=== PATIENT | female | born 1970 | race African-American/Black ===

== ENCOUNTER 2019-03-20 10:50 | Emergency (ER) | payer MEDICAID ==
[2019-03-20] MEDS ORDERED: NORMAL SALINE 1000 ML 1,000 ML IV ONE (11:31)
[2019-03-20] MEDS ORDERED: ACETAMINOPHEN 325 MG TABLET PO ONE (11:31)
[2019-03-20] MEDS ORDERED: MECLIZINE HCL 25 MG TABLET PO ONE ×2 (11:31→13:45)
--- NOTE | 2019-03-20 11:37 | ER Document Report ---
ED Medical Screen (RME) - General Chief Complaint: Headache >24 hrs old Stated Complaint: HEADACHE/DIZZY Time Seen by Provider: 03/20/19 11:24 Notes: Patient is a 48-year-old female who presents emergency department with a chief complaint of a headache. She has had headache for the past 2 weeks. She denies any numbness, weakness, or tingling. Patient states that the headache is on the right side of her head and at the crown of her head. Patient states that she also did have some night spots. She also has some dizziness. Patient has a history of migraines, but has not had a migraine cocktail before. Patient was taking NyQuil and DayQuil at home with little relief. She has not taken ibuprofen or Tylenol. Exam: 5 out of 5 strength in upper and lower extremities. I have greeted and performed a rapid initial assessment of this patient. A comprehensive ED assessment and evaluation of the patient, analysis of test results and completion of medical decision making process will be conducted by an additional ED providers. TRAVEL OUTSIDE OF THE [place] IN LAST 30 DAYS: No Past Medical History - Social History Chew tobacco use (# tins/day): No Frequency of alcohol use: Rare Drug Abuse: None Physical Exam - Vital signs Vitals: Temp Pulse Resp BP Pulse Ox 98.1 F 84 16 145/92 H 97 03/20/19 11:00 03/20/19 11:00 03/20/19 11:00 03/20/19 11:00 03/20/19 11:00 Course - Vital Signs Vital signs: Temp Pulse Resp BP Pulse Ox 98.1 F 84 16 145/92 H 97 03/20/19 11:00 03/20/19 11:00 03/20/19 11:00 03/20/19 11:00 03/20/19 11:00
[2019-03-20 12:20] LABS: APPEARANCE,URINE CLEAR; BILIRUBIN,URINE NEGATIVE (NEGATIVE); COLOR,URINE YELLOW; GLUCOSE, URINE NEGATIVE (NEGATIVE); KETONES,URINE NEGATIVE (NEGATIVE); PROTEIN,URINE NEGATIVE (NEGATIVE); URINE SPECIFIC GRAVITY 1.013; UROBILINOGEN,URINE NEGATIVE mg/dL (<2.0)
--- NOTE | 2019-03-20 13:14 | EKG REPORT ---
SEVERITY:- NORMAL ECG - SINUS RHYTHM : Confirmed by: Graham Londono MD 20-Mar-2019 13:13:15
[2019-03-20] MEDS ORDERED: ACETAMINOPHEN 325 MG TABLET ONE (13:43)
[2019-03-20 14:25] LABS: ABSOLUTE BASOPHILS # (AUTO) 0.1 10^3/uL (0.0-0.2); ABSOLUTE EOSINOPHILS # (AUTO) 0.1 10^3/uL (0.0-0.6); ABSOLUTE MONOCYTES (AUTO) 0.4 10^3/uL (0.1-1.4); ABSOLUTE NEUT (AUTO) 2.9 10^3/uL (1.7-8.2); BASOPHILS % (AUTO) 1.3 % (0-2); EOSINOPHILS % (AUTO) 2.1 % (0-6); HEMATOCRIT 47.1 % (36.0-47.0); HEMOGLOBIN 15.8 g/dL (12.0-15.5); LYMPHOCYTES % (AUTO) 36.9 % (13-45); MEAN CORPUSCULAR HEMOGLOBIN 32.8 pg (27.0-33.4); MEAN CORPUSCULAR HGB CONC 33.5 g/dL (32.0-36.0); MEAN CORPUSCULAR VOLUME 98 fl (80-97); MONOCYTES % (AUTO) 6.9 % (3-13); PLATELET COUNT 260 10^3/uL (150-450); RED BLOOD COUNT 4.81 10^6/uL (3.72-5.28); RED CELL DISTRIBUTION WIDTH 12.4 % (11.5-14.0); SEGMENTED NEUTROPHILS % (AUTO) 52.8 % (42-78); TOTAL CELLS COUNTED % (AUTO) 100 %; WHITE BLOOD COUNT 5.4 10^3/uL (4.0-10.5)
[2019-03-20 14:43] LABS: ALBUMIN 4.4 g/dL (3.5-5.0); ALKALINE PHOSPHATASE 82 U/L (38-126); ANION GAP 6 (5-19); ASPARTATE AMINO TRANSFERASE 28 U/L (14-36); BILIRUBIN,TOTAL 0.3 mg/dL (0.2-1.3); BLOOD UREA NITROGEN 13 mg/dL (7-20); CARBON DIOXIDE 31 mmol/L (22-30); CHLORIDE 101 mmol/L (98-107); CREATINE KINASE 96 U/L (30-135); GLUCOSE 85 mg/dL (75-110); POTASSIUM 3.9 mmol/L (3.6-5.0); TOTAL PROTEIN 7.7 g/dL (6.3-8.2)
[2019-03-20 14:55] LABS: CREATINE KINASE MB 0.76 ng/mL (<4.55)
[2019-03-20 14:56] LABS: TROPONIN I < 0.012 ng/mL
[2019-03-20] MEDS ORDERED: BUTALB/ACETAMINOPHEN/CAFFEINE 1 TAB EACH PO ONE (16:09)
--- NOTE | 2019-03-20 16:36 | RADIOLOGY REPORT (SQ) ---
EXAM DESCRIPTION: CT HEAD WITHOUT COMPLETED DATE/TIME: 03/20/2019 4:20 pm REASON FOR STUDY: pain COMPARISON: None. TECHNIQUE: Axial images acquired through the brain without intravenous contrast. Images reviewed wit h bone, brain and subdural windows. Images stored on PACS. All CT scanners at this facility use dose modulation, iterative reconstruction, and/or weight based d osing when appropriate to reduce radiation dose to as low as reasonably achievable (ALARA). [facility]: Dose Right [facility]: CareDose [facility]: Dose Right [facility]: Teradose 4D [facility]: [employer] RADIATION DOSE: . LIMITATIONS: None. FINDINGS: VENTRICLES: Normal size and contour. CEREBRUM: No masses. No hemorrhage. No midline shift. Age appropriate white matter. No evidence for a cute infarction. CEREBELLUM: No masses. No hemorrhage. No alteration of density. No evidence for acute infarction. EXTRA-AXIAL SPACES: No fluid collections. ORBITS AND GLOBE: No intra- or extraconal masses. Normal contour of globe without masses. CALVARIUM: No fracture. PARANASAL SINUSES: No fluid or mucosal thickening. SOFT TISSUES: No mass or hematoma. OTHER: No other significant finding. IMPRESSION: NO ACUTE INTRACRANIAL FINDINGS. EVIDENCE OF ACUTE STROKE: NO. TECHNICAL DOCUMENTATION: JOB ID: [id number] [place]-72 Quality ID # [id number]: Final reports with documentation of one or more dose reduction techniques (e.g., Au tomated exposure control, adjustment of the mA and/or kV according to patient size, use of iterative reconstruction technique) 2010 [employer]- All Rights Reserved Reading location - IP/workstation name: [email or web address]
--- NOTE | 2019-03-20 18:04 | ER Document Report ---
ED General - General Chief Complaint: Headache >24 hrs old Stated Complaint: HEADACHE/DIZZY Time Seen by Provider: 03/20/19 11:24 Mode of Arrival: Ambulatory Information source: Patient TRAVEL OUTSIDE OF THE [place] IN LAST 30 DAYS: No - HPI Notes: Patient presents with headache. This headache is been going on for 2 weeks. She states it occurs every morning. She states for the last 2 days however is continued throughout the day. She states it is in the frontal region the occipital region and behind the right eye. She states she has had a dry cough with some fever and chills. She denies any nausea. No vomiting. No diarrhea. No head trauma. She states she does have a history of migraines but is never seen a physician for migraines. She does not take any chronic migraine medications. She denies any vision changes. No numbness tingling or weakness. No trouble speaking or swallowing. Nothing makes the pain better or worse. It does radiate from the front to the back of her head. It is a pressure sensation. It has been intermittent. - Related Data Allergies/Adverse Reactions: Bleach (Sodium Hypochlorite) Allergy (Verified 03/20/19 14:02) Latex, Natural Rubber Allergy (Verified 03/20/19 14:02) Opioids - Morphine Analogues Allergy (Verified 03/20/19 14:02) Past Medical History - General Information source: Patient - Social History Smoking Status: Never Smoker Chew tobacco use (# tins/day): No Frequency of alcohol use: Rare Drug Abuse: None Family History: Reviewed & Not Pertinent Patient has suicidal ideation: No Patient has homicidal ideation: No Neurological Medical History: Reports: Hx Migraine Past Surgical History: Reports: Hx Abdominal Surgery - hernia repair, Hx Hysterectomy, Hx Oral Surgery - root canal, Hx Orthopedic Surgery - bunion removal, Hx Tubal Ligation Review of Systems - Review of Systems Constitutional: Chills, Malaise Cardiovascular: denies: Chest pain, Palpitations Respiratory: denies: Cough, Short of breath Gastrointestinal: denies: Abdominal pain, Diarrhea, Vomiting -: Yes All other systems reviewed and negative Physical Exam - Vital signs Vitals: Temp Pulse Resp BP Pulse Ox 98.1 F 84 16 145/92 H 97 03/20/19 11:00 03/20/19 11:00 03/20/19 11:00 03/20/19 11:00 03/20/19 11:00 Interpretation: Normal - General General appearance: Appears well, Alert - HEENT Head: Normocephalic, Atraumatic Eyes: Normal Pupils: PERRL - Respiratory Respiratory status: No respiratory distress Chest status: Nontender Breath sounds: Normal Chest palpation: Normal - Cardiovascular Rhythm: Regular Heart sounds: Normal auscultation Murmur: No - Abdominal Inspection: Normal Distension: No distension Bowel sounds: Normal Tenderness: Nontender Organomegaly: No organomegaly - Back Back: Normal, Nontender - Extremities General upper extremity: Normal inspection, Nontender, Normal color, Normal ROM, Normal temperature General lower extremity: Normal inspection, Nontender, Normal color, Normal ROM, Normal temperature, Normal weight bearing. No: Traci's sign - Neurological Neuro grossly intact: Yes Cognition: Normal Orientation: AAOx4 Wale Coma Scale Eye Opening: Spontaneous Wale Coma Scale Verbal: Oriented Wale Coma Scale Motor: Obeys Commands Wale Coma Scale Total: 15 Speech: Normal Cranial nerves: Normal Cerebellar coordination: Normal. No: Finger-nose rhombey Motor strength normal: LUE, RUE, LLE, RLE Additional motor exam normals: Equal inside finisher. No: Pronator drift Sensory: Normal - Psychological Associated symptoms: Normal affect, Normal mood - Skin Skin Temperature: Warm Skin Moisture: Dry Skin Color: Normal Course - Re-evaluation Re-evalutation: 03/20/19 18:04 Patient presents with several complaints. One is headache. She has a normal neurological exam and a negative head CT. She has had this headache for several weeks and it did not have a sudden onset. I believe this to be best served as being pursued as an outpatient. She also complains of some intermittent chest pain. It does not sound cardiac history. She has a normal EKG with normal laboratories. I also believe this would best be served following up as an outpatient. - Vital Signs Vital signs: Temp Pulse Resp BP Pulse Ox 98.1 F 84 15 131/104 H 100 03/20/19 11:00 03/20/19 11:00 03/20/19 17:01 03/20/19 17:00 03/20/19 17:01 - Laboratory Result Diagrams: 03/20/19 13:59 03/20/19 13:59 Laboratory results interpreted by me: 03/20/19 03/20/19 13:59 13:59 Hgb 15.8 H Hct 47.1 H MCV 98 H Carbon Dioxide 31 H - Diagnostic Test Radiology reviewed: Image reviewed, Reports reviewed - EKG Interpretation by Me EKG shows normal: Sinus rhythm Rate: Normal - 74 Rhythm: NSR [place]/QRS: No: Right axis deviation, Left axis deviation Discharge - Discharge Clinical Impression: Headache Qualifiers: Headache type: unspecified Headache chronicity pattern: acute headache Intractability: intractable Qualified Code(s): R51 - Headache Chest pain Qualifiers: Chest pain type: unspecified Qualified Code(s): R07.9 - Chest pain, unspecified Condition: Stable Disposition: HOME, SELF-CARE Instructions: Headache ([facility]), Chest Pain of Unclear Cause ([facility]) Additional Instructions: Please call your primary care physician as soon as possible to arrange follow-up Prescriptions: Butalb/Acetaminophen/Caffeine [Fioricet (50-325-40 mg) Tablet] 1 tab PO Q4HP PRN #30 tab PRN Reason:
[2019-03-20 18:11] VITALS: BP 159/98
== END 2019-03-20 18:21 | disposition home or self-care (01) ==
LOC: ER 10:50
DX: R51 Headache (principal); R07.9 Chest pain, unspecified; R05 Cough; R68.83 Chills (without fever); R53.83 Other fatigue; Z91.048 Other nonmedicinal substance allergy status; Z91.040 Latex allergy status; Z88.5 Allergy status to narcotic agent
CPT/HCPCS: 93005; 99284; 96360; 96361; 36415; 82553; 82550; 85025; 80053; 81001; 84484; 70450; 93010; J3490; J7030

== ENCOUNTER 2019-03-23 05:46 | Emergency (ER) | payer MEDICAID ==
[2019-03-23] MEDS ORDERED: KETOROLAC TROMETHAMINE INJ/PF 30 MG/1 ML SDV IV ONE (08:35)
[2019-03-23] MEDS ORDERED: NORMAL SALINE 1000 ML 1,000 ML IV ONE (08:36)
[2019-03-23] MEDS ORDERED: METOCLOPRAMIDE HCL INJ/PF 10 MG/2 ML SDV IV ONE (08:36)
[2019-03-23] MEDS ORDERED: DIPHENHYDRAMINE HCL 50 MG/ML VIAL IV ONE (08:36)
--- NOTE | 2019-03-23 08:39 | ER Document Report ---
ED General - General Chief Complaint: Headache >24 hrs old Stated Complaint: MIGRAINE Time Seen by Provider: 03/23/19 08:29 TRAVEL OUTSIDE OF THE [place] IN LAST 30 DAYS: No - HPI Notes: Patient is a 48-year-old female who presents emergency department for evaluation of a migraine headache. She states that behind her right eye, occasionally spreads around the left side. It is worsened by bright lights and loud noises. She has a history of migraines. This particular headache is been present for 2 weeks. She states that seems to be worse in the morning. She is had some nausea but no associated emesis. No visual changes. No difficulty seeing, speaking, swallowing. She was sent home from here with migraine medication and blood pressure medication, which she did not get filled secondary to financial reasons. - Related Data Allergies/Adverse Reactions: Bleach (Sodium Hypochlorite) Allergy (Verified 03/20/19 14:02) Latex, Natural Rubber Allergy (Verified 03/20/19 14:02) Opioids - Morphine Analogues Allergy (Verified 03/20/19 14:02) Home Medications: Pt states she has rx for medications but has not gotten them filled due to monetary reasons. Past Medical History - General Information source: Patient - Social History Smoking Status: Former Smoker Family History: Reviewed & Not Pertinent, Other - Migraines in mother and brother Patient has suicidal ideation: No Patient has homicidal ideation: No Neurological Medical History: Reports: Hx Migraine Past Surgical History: Reports: Hx Abdominal Surgery - hernia repair, Hx Hysterectomy, Hx Oral Surgery - root canal, Hx Orthopedic Surgery - bunion removal, Hx Tubal Ligation Review of Systems - Review of Systems Constitutional: No symptoms reported EENT: No symptoms reported Cardiovascular: No symptoms reported Respiratory: No symptoms reported Gastrointestinal: No symptoms reported Female Genitourinary: No symptoms reported Musculoskeletal: No symptoms reported Skin: No symptoms reported Neurological/Psychological: No symptoms reported Physical Exam - Vital signs Vitals: Temp Pulse Resp BP Pulse Ox 98.1 F 89 14 173/104 H 100 03/23/19 06:11 03/23/19 06:11 03/23/19 06:11 03/23/19 06:11 03/23/19 06:11 - Notes Notes: Vital signs reviewed, please refer to chart. Head is normocephalic, atraumatic. Pupils equal round, reactive to light. Neck is supple without meningismus. She does have some tenderness to the base of the occiput on the right, and into the C2 transverse process. Heart is regular rate and rhythm. Lungs are clear to auscultation bilaterally. Abdomen is soft, nontender, normoactive bowel sounds throughout. Extremities without cyanosis, clubbing. Posterior calves are nontender. Peripheral pulses are equal. Skin is warm and dry. Patient is awake, alert, oriented x3. Cranial nerves II - XII are grossly intact without focal neurological deficits. Strength is plus 5 out of 5 bilateral upper and l ower extremities. Sensation is intact. Reflexes symmetrical. Intact [id number], rapid alternating movements, [id number]. Course - Re-evaluation Re-evalutation: 03/23/19 08:38 Patient presents emergency department for evaluation. She is hypertensive. Her neurological exam is unremarkable. She has no meningeal signs. She had a CT scan during her last visit. I will treat her symptomatically. We will continue to monitor. 03/23/19 10:36 Patient feeling significantly improved. My suspicion is is that this is in part secondary to tension headache as well. I will send her with a prescription for Flexeril, which can be obtained as a generic. The importance of getting good blood pressure control, getting her medications filled, was explained in great detail to the patient. She actually lives in [place]. She plans on traveling back home next week. She is to follow-up closely with primary care and address all of these issues. She is to return to the ED with worsening. - Vital Signs Vital signs: Temp Pulse Resp BP Pulse Ox 98.1 F 89 14 173/104 H 100 03/23/19 06:11 03/23/19 06:11 03/23/19 06:11 03/23/19 06:11 03/23/19 06:11 Discharge - Discharge Clinical Impression: Headache Qualifiers: Headache type: tension-type Headache chronicity pattern: acute headache Condition: Stable Disposition: HOME, SELF-CARE Instructions: Headache ([facility]) Additional Instructions: Rest, moist heat to the painful area in the back of your head and neck. Take Flexeril as needed for muscle tension, please watch for dizziness and drowsiness with this medication. You need to have your blood pressure issues addressed as well, please do that as soon as possible upon returning to your home state. If you develop worsening or new concerning symptoms of any sort, please return immediately to the emergency department for reevaluation.
[2019-03-23 10:51] VITALS: BP 134/88
== END 2019-03-23 10:50 | disposition home or self-care (01) ==
LOC: ER 05:46
DX: G44.209 Tension-type headache, unspecified, not intractable (principal); Z91.040 Latex allergy status; Z88.6 Allergy status to analgesic agent
CPT/HCPCS: J1200; J1885; J2765; J7030